=== PATIENT | female | born 2000 | race African-American/Black ===

== ENCOUNTER 2024-05-18 06:18 | Emergency (ER) | payer OTHER, SELFPAY ==
--- NOTE | ~2024-05-18 | US_ITS ---
EXAMINATION: US OB <= 14 weeks fetus DATE: 05/18/2024 08:02 INDICATION: Abdomen pain TECHNIQUE: Real-time transabdominal obstetric ultrasound. FINDINGS: No prior studies for comparison. The uterus measures 11.3 x 8.5 x 9.7 cm. There is an intrauterine gestational sac, with pole id entified. The crown rump length measures 4.12 cm, which correlates with a estimated gestational age of 11 weeks 0 days. heart tones are identified measuring 152 BPM. The ovaries are within norm al limits. No free fluid in the pelvis. IMPRESSION: 1. SL IUP with an EGA of 11 weeks, 0 days (EDC by current ultrasound of 12/07/2024). Reviewed, dictated and finalized at location B. 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 SL IUP with an EGA of 11 weeks, 0 days (EDC by current ultrasound of 12/08/19 25).
[2024-05-18 06:18] VITALS: BP 115/72; PULSE 70; RESP 16; TEMP 37.1; O2SAT 94
--- NOTE | 2024-05-18 06:26 | ECG_ITS ---
Test Date: 2024-05-18 06:28:06 Measurements Intervals [place] Rate: 66 P: 75 NM: 133 QRS: 73 QRSD: 95 T: 58 QT: 398 QTc: 418 Interpretive Statements SINUS RHYTHM BASELINE ARTIFACT- I, III, AVR, AVL, AVF NORMAL ECG No previous ECG available for comparison Electronically Signed On 05-18-2024 08:10:37 [employer]ANK CONS[employer] by Awais Perkins D.O.
[2024-05-18 06:48] LABS: Basophils Percent Auto 0.3 % (0.2-1.2); Eosinophils Absolute Auto 0.1 K/mm3 (0-0.3); Eosinophils Percent Auto 0.5 % (0-4.4); Hematocrit 40.6 % (37.0-47.0); Hemoglobin 13.9 g/dL (12.0-15.0); Immature Granulocyte Absolute 0.04 K/mm3 (0.00-0.031); Immature Granulocyte Percent A 0.4 % (0-0.5); Lymphocytes Percent Auto 8.1 % (18.3-44.2); Mean Corpuscular HGB Conc 34.2 g/dl (32-36); Mean Corpuscular Volume 87.5 fl (80-100); Mean Platelet Volume 10.9 fl (7.4-10.4); Monocytes Absolute Auto 0.6 K/mm3 (0.1-0.6); Monocytes Percent Auto 4.9 % (2.6-8.5); Neutrophils Absolute Auto 9.6 K/mm3 (1.3-6.7); Neutrophils Percent Auto 85.8 % (45.5-73.1); Platelet Count Result 306 k/mm3 (150-375); Red Blood Count 4.64 M/mm3 (4.2-5.4); Red Cell Distribution Width 12.8 % (11.5-14.5); White Blood Count 11.1 K/mm3 (4.5-10.0)
[2024-05-18 07:04] LABS: Alanine Aminotransferase 12 U/L (6-35); Albumin Level 4.5 g/dL (3.5-5.1); Alkaline Phosphatase 79 U/L (38-126); Anion Gap 11 mmol/L (4-12); Aspartate Amino Transferase 23 U/L (14-36); Bilirubin,Total 0.7 mg/dL (0.2-1.3); Blood Urea Nitrogen 10 mg/dL (7-17); Calcium 9.5 mg/dL (8.4-10.2); Carbon Dioxide 19 mmol/L (22-30); Chloride 106 mmol/L (98-107); Estimated CRCL calculation 128 ml/min; Estimated Glomerular Filt Rate > 60; Glucose 109 mg/dL (65-110); Lipase 62 U/L (23-300); Potassium 3.6 mmol/L (3.4-5.0); Sodium 136 mmol/L (137-145)
[2024-05-18] MEDS: MORPHINE SULFATE (*CRX) 4 MG/ML INJ IV PUSH (07:18)
[2024-05-18] MEDS: SODIUM CHLORIDE 0.9% IV 1,000 ML 999 ML IV CONT (07:18)
[2024-05-18] MEDS: METOCLOPRAMIDE HCL INJ 10 MG/2 ML VIAL IV PUSH (07:18)
[2024-05-18 07:19] VITALS: BP 110/58; PULSE 67; RESP 16; TEMP 36.7; O2SAT 97
[2024-05-18 07:19] LABS: Add Urine Microscopic? YES; Appearance Urine Turbid (Clear); Bacteria Urine 4+ /hpf; Bilirubin Urine 1+ (Negative); Blood Urine Negative (Negative); Color Urine Dark Yellow (Yellow); Glucose Urine UA Negative (Negative); Ketones Urine 3+ mg/dL (Negative); Leukocyte Esterase Ur 2+ LEU/UL (Negative); Need Manual Microscopic Reviewed; Nitrate Urine Negative (Negative); Protein Urine 1+ mg/dL (Negative); Specific Grav Ur 1.034 (1.001-1.035); Squamous Epithelial Cell Urine Many /hpf (Few); WBC Urine 21-50 /hpf (0-3)
--- NOTE | 2024-05-18 08:20 | ED.GENADULT ---
HPI - General Adult General Chief complaint: Syncope Stated complaint: syncopy Time Seen by Provider: 05/18/24 07:01 History of Present Illness HPI narrative: patient is a 24-year-old female who presents emergency department chief complaint of abdominal pain and nausea vomiting patient reports that she had some syncopal episodes reports he is having severe pain in her lower abdomen. Patient reports that she has had multiple episodes of vomiting reports she is about 10 weeks the patient is on her 2nd . Patient has not had any vaginal bleeding or vaginal discharge. Related Data Allergies Allergy/AdvReac Type Severity Reaction Status Date / Time No Known Allergies Allergy Unverified 10/02/16 14:53 Review of Systems Review of Systems: A 10 system review of systems was completed on the patient and is negative except for what is stated in the HPI. Nursing and ancillary documentation was reviewed. Exam Narrative: GENERAL: Well-appearing, well-nourished, and in mild acute pain distress. HEAD: Normocephalic, atraumatic. EYES: PERRLA and EOMI. ENT: Nares clear, no rhinorrhea or epistaxis. Mucous membranes moist. NECK: Supple. CHEST: Clear to auscultation. No respiratory distress. HEART: Regular rate and rhythm. No murmur heard. Normal peripheral pulses. ABDOMEN: Soft, nontender, nondistended, normal active bowel sounds. EXTREMITIES: Normal range of motion. No edema. SKIN: Warm, dry, no rash. NEURO: No focal deficits. Alert and oriented x3. PSYCH: Normal mood and affect. Course Vital Signs Vital signs: Vital Signs Temperature 37.1 C 05/18/24 06:18 Pulse Rate 70 05/18/24 06:18 Respiratory Rate 16 05/18/24 06:18 Blood Pressure 115/72 05/18/24 06:18 Pulse Oximetry 94 05/18/24 06:18 Oxygen Delivery Room Air 05/18/24 06:18 Temperature 37.1 C 05/18/24 06:18 Pulse Rate 70 05/18/24 06:18 Respiratory Rate 16 05/18/24 06:18 Blood Pressure 115/72 05/18/24 06:18 Pulse Oximetry 94 05/18/24 06:18 Oxygen Delivery Room Air 05/18/24 06:18 Medical Decision Making MDM Narrative Medical decision making narrative: differential diagnosis includes ectopic , UTI, pyelonephritis, ureterolithiasis intra-abdominal infection patient shows no signs of peritoneal irritation. There is no blood in the urine there was evidence of a UTI the patient's pain was controlled in the emergency department Vital Signs Vital Signs: Vital Signs Temperature 37.1 C 05/18/24 06:18 Pulse Rate 70 05/18/24 06:18 Respiratory Rate 16 05/18/24 06:18 Blood Pressure 115/72 05/18/24 06:18 Pulse Oximetry 94 05/18/24 06:18 Oxygen Delivery Room Air 05/18/24 06:18 Temperature 37.1 C 05/18/24 06:18 Pulse Rate 70 05/18/24 06:18 Respiratory Rate 16 05/18/24 06:18 Blood Pressure 115/72 05/18/24 06:18 Pulse Oximetry 94 05/18/24 06:18 Oxygen Delivery Room Air 05/18/24 06:18 Lab Data 05/18/24 06:41 05/18/24 06:41 Labs: Lab Results 05/18/24 05/18/24 Range/Units 06:41 06:56 WBC 11.1 H (4.5-10.0) K/mm3 RBC 4.64 (4.2-5.4) M/mm3 Hgb 13.9 (12.0-15.0) g/dL Hct 40.6 (37.0-47.0) % MCV 87.5 (80-100) fl MCH 30.0 (26-34) pg MCHC 34.2 (32-36) g/dl RDW 12.8 (11.5-14.5) % Plt Count 306 (150-375) k/mm3 MPV 10.9 H (7.4-10.4) fl Immature Gran % (Auto) 0.4 (0-0.5) % Neut % (Auto) 85.8 H (45.5-73.1) % Lymph % (Auto) 8.1 L (18.3-44.2) % [place] % (Auto) 4.9 (2.6-8.5) % Eos % (Auto) 0.5 (0-4.4) % Baso % (Auto) 0.3 (0.2-1.2) % Lymph # (Auto) 0.90 (0.9-3.2) K/mm3 [place] # (Auto) 0.6 (0.1-0.6) K/mm3 Eos # (Auto) 0.1 (0-0.3) K/mm3 Baso # (Auto) 0.0 (0.0-0.1) K/mm3 Abs Immat Gran (auto) 0.04 H (0.00-0.031) K/mm3 Absolute Neuts (auto) 9.6 H (1.3-6.7) K/mm3 Absolute Nucleated RBC 0.000 (0.0-0.012) K/mm3 Nucleated RBC % 0.0 (0.0-0.2) % Sodium 136 L (137-145) mmol/L Potassium 3.6 (3.4-5.0) mmol/L Chloride 106 (98-107) mmol/L Carbon Dioxide 19 L (22-30) mmol/L Anion Gap 11 (4-12) mmol/L BUN 10 (7-17) mg/dL Creatinine 0.50 L (0.7-1.0) mg/dL Estim Creat Clear Calc 128 ml/min Estimated GFR > 60 (59 - ) Glucose 109 (65-110) mg/dL Calcium 9.5 (8.4-10.2) mg/dL Total Bilirubin 0.7 (0.2-1.3) mg/dL AST 23 (14-36) U/L ALT 12 (6-35) U/L Alkaline Phosphatase 79 (38-126) U/L Total Protein 9.0 H (6.3-8.2) g/dL Albumin 4.5 (3.5-5.1) g/dL Lipase 62 (23-300) U/L Beta HCG, Quant 95837.00 mIU/ML Urine Color Dark yellow (Yellow) Urine Appearance Turbid H (Clear) Urine pH 5.0 (5.0-9.0) Ur Specific [place] 1.034 (1.001-1.035) Urine Protein 1+ H (Negative) mg/dL Urine Glucose (UA) Negative (Negative) mg/dL Urine Ketones 3+ H (Negative) mg/dL Ur Blood (Man) Negative (Negative) Urine Nitrate Negative (Negative) Urine Bilirubin 1+ H (Negative) Urine Urobilinogen 1.0 (<2.0) mg/dL Add Ur Microanalysis Reviewed Leukocyte Esterase Rfl 2+ H (Negative) [place]/UL Urine RBC 6-10 H (0-2) /hpf Urine WBC 21-50 H (0-3) /hpf Ur Squamous Epith Cells Many H (Few) /hpf Urine Bacteria 4+ H /hpf Urine Casts 6-10 Discharge Plan Discharge Clinical Impression: Abdominal pain in , UTI (urinary tract infection) Patient Disposition: Home, Self-Care Condition: Stable Instructions: Antibiotic Form, Abdominal Pain (ED), Abdominal Pain in (ED), Urinary Tract Infection in (ED) Prescriptions: New cephalexin 500 mg capsule 500 mg PO Q12H 7 Days Qty: 14 0RF Follow-up/Referrals: UNKNOWN,DOCTOR [Primary Care Provider] - Time of Disposition: 08:27
[2024-05-18 08:30] VITALS: BP 106/58; PULSE 78; RESP 20; TEMP 36.6; O2SAT 100
[2024-05-18] MEDS: CEPHALEXIN 500 MG CAPSULE PO (08:36)
[2024-05-18 09:04] LABS: BEDSIDEPREGUCG Positive (Negative)
== END 2024-05-18 09:05 | disposition home or self-care (01) ==
PROVIDERS: Student in an Organized Health Care Education/Training Program; Emergency Provider Emergency Medicine
DX: O23.41 Unspecified infection of urinary tract in pregnancy, first trimester (principal); N39.0 Urinary tract infection, site not specified; Z3A.10 10 weeks gestation of pregnancy
CPT/HCPCS: 36415; 76801; 80053; 81001; 81025; 83690; 84702; 85025; 87077; 87086; 87186; 93005; 96361; 96374; 96375; 99284; A9270; J2270; J2765; J7030